=== PATIENT | male | born 1995 | race American Indian/Alaskan Native ===

== ENCOUNTER 2021-08-09 20:00 | Emergency (ER) | payer SELFPAY ==
[2021-08-09 20:12] VITALS: BP 153/105
[2021-08-09] MEDS ORDERED: SODIUM CHLORIDE 0.9% 1000 ML 1,000 ML IV ONE (23:01)
--- NOTE | 2021-08-09 23:40 | Emergency Department Report ---
ED General Adult HPI - General Chief complaint: Weakness Stated complaint: WEAKNESS Time Seen by Provider: 08/09/21 23:02 Source: patient Mode of arrival: Stretcher Limitations: No Limitations - History of Present Illness Initial comments: Patient 26-year-old male with history of depression and schizophrenia. Patient states he has been walking all day felt dehydrated and collapsed on the side of the road stating near syncopal. There is no chest pain no shortness of breath there is no dizziness or lightheadedness at this time patient's primary compl aint at this time is cramping. Last p.o. intake was this AM. Patient denies nausea or vomiting. There is no fever or chills. There is no cough. Symptoms are exacerbated by activity. Symptoms are relieved by nothing tried. Patient denies SI or HI at this time. Patient states safe dwelling living in [place] however he wants to move out. Patient rates symptoms at 5/10 at this time. - Related Data Allergies Allergy/AdvReac Type Severity Reaction Status Date / Time No Known Allergies Allergy Unverified 08/09/21 20:11 ED Review of Systems ROS: Stated complaint: WEAKNESS Other details as noted in HPI Constitutional: malaise. denies: chills, fever Eyes: denies: eye pain, eye discharge, vision change ENT: denies: ear pain, throat pain Respiratory: denies: cough, shortness of breath, wheezing Cardiovascular: denies: chest pain, palpitations Endocrine: no symptoms reported Gastrointestinal: as per HPI. denies: abdominal pain, nausea, vomiting Genitourinary: denies: urgency, dysuria Musculoskeletal: denies: back pain, joint swelling, arthralgia Skin: denies: rash, lesions Neurological: weakness, vertigo. denies: headache, numbness, paresthesias, confusion Psychiatric: denies: anxiety, depression Hematological/Lymphatic: denies: easy bleeding, easy bruising ED Past Medical Hx - Past Medical History Previous Medical History?: Yes Hx Psychiatric Treatment: Yes (Bipolar schizophrenia) - Surgical History Past Surgical History?: No ED Physical Exam - General Limitations: No Limitations General appearance: alert, in no apparent distress - Head Head exam: Present: normocephalic, normal inspection - Eye Eye exam: Present: normal appearance, PERRL, EOMI. Absent: conjunctival injection, nystagmus Pupils: Present: normal accommodation - ENT ENT exam: Present: normal exam - Neck Neck exam: Present: normal inspection, full ROM. Absent: tenderness, meningismus - Respiratory Respiratory exam: Present: normal lung sounds bilaterally. Absent: respiratory distress, wheezes, rales, rhonchi, stridor, chest wall tenderness - Cardiovascular Cardiovascular Exam: Present: regular rate, normal rhythm, normal heart sounds. Absent: systolic murmur, diastolic murmur, rubs, gallop - GI/Abdominal GI/Abdominal exam: Present: soft, normal bowel sounds. Absent: distended, tenderness, bruit, hernia - Rectal Rectal exam: Present: deferred - Extremities Exam Extremities exam: Present: normal inspection, full ROM, normal capillary refill. Absent: tenderness, pedal edema, calf tenderness - Back Exam Back exam: Present: normal inspection, full ROM. Absent: CVA tenderness (R), CVA tenderness (L) - Neurological Exam Neurological exam: Present: alert, oriented X3, CN II-XII intact, normal gait, reflexes normal. Absent: motor sensory deficit - Expanded Neurological Exam Expanded Patient oriented to: Present: person, place, time Speech: Present: fluid speech Motor strength exam: RUE: 5, LUE: 5, RLE: 5, LLE: 5 DTR: knee (R): 1+, knee (L): 1+ Best Eye Response ([place]): (4) open spontaneously Best Motor Response ([place]): (6) obeys commands Best Verbal Response ([place]): (5) oriented [place] Total: 15 - Psychiatric Psychiatric exam: Present: normal affect, normal mood - Skin Skin exam: Present: warm, dry, intact, normal color. Absent: rash ED Course Vital Signs 08/09/21 20:11 Temperature 98 F Pulse Rate 76 Respiratory 20 Rate Blood Pressure 153/105 [Right] O2 Sat by Pulse 96 Oximetry ED Medical Decision Making - Lab Data Result diagrams: 08/09/21 23:37 08/10/21 04:46 Labs 08/09/21 08/09/21 08/09/21 23:37 23:37 23:37 WBC 20.8 H RBC 5.85 H Hgb 18.5 H Hct 54.1 H MCV 92 MCH 32 MCHC 34 RDW 13.6 Plt Count 221 Sodium 139 Potassium 3.8 Chloride 92.8 L Carbon Dioxide 20 L Anion Gap 30 BUN 22 H Creatinine 2.7 H Estimated GFR 29 BUN/Creatinine Ratio 8 Glucose 143 H Calcium 10.3 H Total Bilirubin 1.50 H AST 39 ALT 42 Alkaline Phosphatase 137 H Total Creatine Kinase 596 H Total Protein 9.2 H Albumin 5.5 H Albumin/Globulin Ratio 1.5 Urine Color Urine Turbidity Urine pH Ur Specific [place] Urine Protein Urine Glucose (UA) Urine Ketones Urine Blood Urine Nitrite Urine Bilirubin Urine Urobilinogen Ur Leukocyte Esterase Urine WBC (Auto) Urine RBC (Auto) U Epithel Cells (Auto) Hyaline Casts Urine Mucus Urine Yeast (Budding) 08/10/21 08/10/21 04:46 Unknown WBC RBC Hgb Hct MCV MCH MCHC RDW Plt Count Sodium 138 Potassium 4.8 D Chloride 98.9 Carbon Dioxide 24 Anion Gap 20 BUN 23 H Creatinine 1.8 H Estimated GFR 56 BUN/Creatinine Ratio 13 Glucose 123 H Calcium 8.7 D Total Bilirubin AST ALT Alkaline Phosphatase Total Creatine Kinase Total Protein Albumin Albumin/Globulin Ratio Urine Color Kristin Urine Turbidity Cloudy Urine pH 5.0 Ur Specific [place] 1.018 Urine Protein 100 mg/dl Urine Glucose (UA) Neg Urine Ketones Tr Urine Blood Mod Urine Nitrite Neg Urine Bilirubin Neg Urine Urobilinogen < 2.0 Ur Leukocyte Esterase Neg Urine WBC (Auto) 11.0 H Urine RBC (Auto) 8.0 U Epithel Cells (Auto) 1.0 Hyaline Casts 16 Urine Mucus 3+ Urine Yeast (Budding) 2+ - Radiology Data Radiology results: report reviewed, image reviewed CT ABDOMEN AND PELVIS WITHOUT CONTRAST INDICATION / CLINICAL INFORMATION: Acute bilateral flank pain TECHNIQUE: Axial CT images were obtained through the abdomen and pelvis without IV contrast. All CT scans at this location are performed using CT dose reduction for ALARA by means of automated exposure control. COMPARISON: None available. FINDINGS: LOWER CHEST: No significant abnormality. LIVER: No significant abnormality. GALLBLADDER: No significant abnormality. BILE DUCTS: No significant abnormality. PANCREAS: No significant abnormality. SPLEEN: No significant abnormality. ADRENALS: No significant abnormality. RIGHT KIDNEY and URETER: No significant abnormality within the limits of the noncontrast technique. LEFT KIDNEY and URETER: No significant abnormality within the limits of the noncontrast technique. STOMACH and SMALL BOWEL: No significant abnormality. COLON: No significant abnormality. APPENDIX: Not identified. PERITONEUM: No free fluid. No free air. No fluid collection. LYMPH NODES: No significant adenopathy. AORTA and ARTERIES: No significant abnormality. IVC and VEINS: No significant abnormality. URINARY BLADDER: No significant abnormality. REPRODUCTIVE ORGANS: No significant abnormality. ADDITIONAL FINDINGS: None. SKELETAL SYSTEM: No significant abnormality. IMPRESSION: 1. No significant abnormality within the limits of the noncontrast technique. Signer Name: Cali Tejada MD Signed: 08/10/2021 3:27 AM Workstation Name: [id number] Transcribed By: Dictated By: Cali Tejada MD Electronically Authenticated By: Cali Tejada MD Signed Date/Time: 08/10/21326 DD/ 4 TD/TT: - Medical Decision Making Chest x-ray is normal no opacities no infiltrates, CT abdomen pelvis no significant abnormalities. Labs are improved with hydration. Patient is voiding well with out dysuria. There is no fevers no chills no nausea no vomiting patient tolerating p.o. intake. Plan DC to home, continue to hydrate. Follow-up with your doctor in 2 to 3 days. Patient verbalized agreement understanding with discharge plan. Patient DC'd home in stable condition at this time. Diagnosis dehydration. Critical care attestation.: If time is entered above; I have spent that time in minutes in the direct care of this critically ill patient, excluding procedure time. ED Disposition Clinical Impression: Dehydration Disposition: 01 HOME / SELF CARE / HOMELESS Is pt being admited?: No Does the pt Need Aspirin: No Condition: Stable Instructions: Dehydration, Adult, [id number], Rehydration, Adult Additional Instructions: Take medications as prescribed, follow-up with your doctor in 2 to 3 days. Continue to hydrate as directed. Return to emergency department should symptoms worsen. Referrals: ROMA WEISS MD [Primary Care Provider] - 3-5 Days ROGER NEIL MD [Staff Physician] - 3-5 Days Forms: Work/School Release Form(ED) Time of Disposition: 05:42
[2021-08-09 23:58] LABS: Hematocrit 54.1 % (35.5-45.6); Hemoglobin 18.5 gm/dl (11.8-15.2); Mean Corpuscular HGB Conc 34 % (32-34); Mean Corpuscular Volume 92 fl (84-94); Platelet Count 221 K/mm3 (140-440); Red Blood Count 5.85 M/mm3 (3.65-5.03); Red Cell Distribution Width 13.6 % (13.2-15.2)
[2021-08-10 00:05] LABS: Albumin 5.5 g/dL (3.9-5); Calcium 10.3 mg/dL (8.4-10.2)
[2021-08-10] MEDS ORDERED: SODIUM CHLORIDE 0.9% 1000 ML 1,000 ML IV ONE (00:37)
[2021-08-10] MEDS ORDERED: ONDANSETRON 4 MG/2 ML INJ IV ONE (01:14)
[2021-08-10 01:22] LABS: Bilirubin,Urine NEG (Negative); Blood,Urine MOD (Negative); Color,Urine Amber (Yellow); Hyaline Casts,Urine 16 /LPF; Mucus,Urine 3+ /HPF; Urobilinogen,Urine < 2.0 mg/dL (<2.0)
[2021-08-10] MEDS ORDERED: cefTRIAXone/NS 1 GM/50 ML 1 GM/50 ML BAG IV ONE (02:49)
[2021-08-10] MEDS ORDERED: LACTATED RINGERS 1,000 ML IV ONE (02:49)
--- NOTE | 2021-08-10 03:31 | Cat Scan Report ---
CT ABDOMEN AND PELVIS WITHOUT CONTRAST INDICATION / CLINICAL INFORMATION: Acute bilateral flank pain TECHNIQUE: Axial CT images were obtained through the abdomen and pelvis without IV contrast. All CT scans at [facility] location are performed using CT dose reduction for ALARA by means of automated exposure control. COMPARISON: None available. FINDINGS: LOWER CHEST: No significant abnormality. LIVER: No significant abnormality. GALLBLADDER: No significant abnormality. BILE DUCTS: No significant abnormality. PANCREAS: No significant abnormality. SPLEEN: No significant abnormality. ADRENALS: No significant abnormality. RIGHT KIDNEY and URETER: No significant abnormality within the limits of the noncontrast technique. LEFT KIDNEY and URETER: No significant abnormality within the limits of the noncontrast technique. STOMACH and SMALL BOWEL: No significant abnormality. COLON: No significant abnormality. APPENDIX: Not identified. PERITONEUM: No free fluid. No free air. No fluid collection. LYMPH NODES: No significant adenopathy. AORTA and ARTERIES: No significant abnormality. IVC and VEINS: No significant abnormality. URINARY BLADDER: No significant abnormality. REPRODUCTIVE ORGANS: No significant abnormality. ADDITIONAL FINDINGS: None. SKELETAL SYSTEM: No significant abnormality. IMPRESSION: 1. No significant abnormality within the limits of the noncontrast technique. Signer Name: Cali Tejada MD Signed: 08/10/2021 3:27 AM Workstation Name: [id number] / ?.??
[2021-08-10 05:27] LABS: Calcium 8.7 mg/dL (8.4-10.2)
[2021-08-10 05:54] LABS: Basophils % (Manual) 0 % (0.0-1.8); Eosinophils % (Manual) 0 % (0.0-4.3); Total Cells Counted 100
[2021-08-10 05:55] LABS: Platelet Estimate Consistent w Auto; RBC Morphology Normal
== END 2021-08-10 06:06 | disposition home or self-care (01) ==
LOC: ED 20:00
DX: E86.0 Dehydration (principal); F31.9 Bipolar disorder, unspecified
CPT/HCPCS: 36415; 74176; 80048; 80053; 81001; 82550; 85007; 85025; 87086; 96361; 96365; 96375; 99284; J0696; J2405; J7030; J7120; Q0162